=== PATIENT | female | born 1985 | race Caucasian/White ===

== ENCOUNTER 2017-06-25 20:47 | Emergency (ER) | payer OTHER ==
[~2017-06-25] VITALS: Ht 162.6 cm; Wt 63.0 kg
[2017-06-25 20:53] VITALS: BP 127/60; PULSE 68; RESP 16; TEMP 97.8; O2SAT 99
--- NOTE | 2017-06-25 21:23 | PD ---
HPI Chief Complaint: Foreign Body Time Seen by Provider: 21:02 Travel History International Travel<30 days: No Contact w/Intl Traveler<30days: No Traveled to known affect area: No History of Present Illness HPI 31 yo f presents to the Ed following puncture wounds to her L foot earlier this week. She states that she was walking through her [employer] barefoot and stepped on a plastic spike strip (that the sales and merchandising representative uses to keep pets off the window sill) and she noticed bleeding from her left foot. Over then ensuing days she noticed increasing pain and redness. She denies fevers or chills. No N/V/D. No CP or SOB. She has seen some blood from the affected area but no alcira pus or purulent drainage. She presents today because the pain is slightly worsening. Denies any fever denies any discharge. PFSH Past Medical History Autoimmune Disease: Yes (Lupus) Cerebrovascular Accident: Yes Diminished Hearing: No Tetanus Vaccination: < 5 Years Influenza Vaccination: No ?: Not LMP: 06/05 Social History Alcohol Use: Yes (3 glasses wine/night) Tobacco Use: No Substance Use: No Allergies-Medications (Allergen,Severity, Reaction): Coded Allergies: Penicillins (Verified Allergy, Intermediate, 06/25/17) Sulfa (Sulfonamide Antibiotics) (Verified Allergy, Intermediate, Itching, 06/25/17) codeine (Verified Allergy, Intermediate, Rash, 06/25/17) morphine (Verified Allergy, Intermediate, Rash, 06/25/17) Reported Meds & Prescriptions Reported Meds & Active Scripts Active Mobic (Meloxicam) 7.5 Mg Tab 7.5 Mg PO DAILY 7 Days Do not take ibuprofen on a day youve taken mobic. Keflex (Cephalexin) 500 Mg Cap 500 Mg PO Q6H 7 Days Review of Systems Except as stated in HPI: all other systems reviewed are Neg Physical Exam Narrative GENERAL: patient is laying in bed comfortably SKIN: Warm and dry. HEAD: Atraumatic. Normocephalic. EYES: Pupils equal and round. No scleral icterus. No injection or drainage. ENT: No nasal bleeding or discharge. Mucous membranes pink and moist. NECK: Trachea midline. No JVD. CARDIOVASCULAR: Regular rate and rhythm. RESPIRATORY: No accessory muscle use. Clear to auscultation. Breath sounds equal bilaterally. GASTROINTESTINAL: Abdomen soft, non-tender, nondistended. Hepatic and splenic margins not palpable. MUSCULOSKELETAL: Extremities without clubbing, cyanosis, or edema. on the volar aspect of the L foot there are three small puncture knight without obvious drainage which are healing well and skin is closed., there is no surrounding erythema. These areas are tender to palpation. Patient is neurovascularly intact. There is no bony tenderness. NEUROLOGICAL: Awake and alert. No obvious cranial nerve deficits. Motor grossly within normal limits. Five out of 5 muscle strength in the arms and legs. Normal speech. PSYCHIATRIC: Appropriate mood and affect; insight and judgment normal. Data Data Last Documented VS Vital Signs Date Time Temp Pulse Resp B/P (MAP) Pulse Ox O2 Delivery O2 Flow Rate FiO2 06/25/17 20:53 97.8 68 16 127/60 (82) 99 Orders Orders Ed Discharge Order (06/25/17 21:39) MDM Medical Decision Making Medical Screen Exam Complete: Yes Emergency Medical Condition: Yes Differential Diagnosis puncture wounds, possible foreign body, cellulitis, Narrative Course Patient roomed emergency department, she does have some concerns for retained foreign body, this point any retained foreign bodies by her description would be small and there would be no indication to remove them. I offered x-ray but after discussion that we wouldn't take any foreign bodies out acutely or in the near future she would like to abstain. I think regimen of Keflex for prophylaxis is a decent idea. However I expect normal wound healing in this patient and return to full function within a few weeks. She is stable for discharge. Diagnosis Primary Impression: Foot pain, left Med/Other Pt SpecificInfo: Prescription(s) given Scripts Meloxicam (Mobic) 7.5 Mg Tab 7.5 MG PO DAILY for Pain for 7 Days, #7 TAB 0 Refills Do not take ibuprofen on a day youve taken mobic. Prov: Sravan Chung MD 06/25/17 Cephalexin (Keflex) 500 Mg Cap 500 MG PO Q6H for Infection for 7 Days, #28 CAP 0 Refills Prov: Sravan Chung MD 06/25/17 Disposition: 01 DISCHARGE HOME Condition: Stable Sravan Chung MD Jun 25, 2017 21:23
[2017-06-25] MEDS ORDERED: MOBI7.5T PO (21:39)
[2017-06-25] MEDS ORDERED: CEPH-460 PO (21:39)
== END 2017-06-25 21:49 | disposition home or self-care (01) ==
LOC: PHEFT 20:47
DX: M79.672 Pain in left foot (principal)
CPT/HCPCS: 99284